=== PATIENT | male | born 1940 | race Hispanic/Latino ===

== ENCOUNTER 2022-07-24 09:38 | Inpatient (IN) | payer OTHER ==
--- OUTSIDE RECORDS SUMMARY | 2022-07-24 09:41 | XMS REPORT | Continuity of Care Document ---
:1940 Author Organization [facility] t Address [address] [place] [address] Care Team Providers Name Role Phone Glenn_Angeline Attending Clinician Unavailable Raju_P Attending Clinician Unavailable Glenn_Angeline Admitting Clinician Unavailable Philippeu_P Admitting Clinician Unavailable Payers Payer Name Policy Type Policy Number Effective Date Expiration Date S Banner [id number] (MEDICARE REPLACEMENT/ADVANTAGE - PPO) Problems This patient has no known problems. Allergies, Adverse Reactions, Alerts This patient has no known allergies or adverse reactions. Social History Smoking Status Start Date Stop Date Source Never Smoker [facility] Medications Ordered Filled Start Stop Current Ordering Indication Dosage Frequency Signature Comments Components Source Medication Medication Date Date Medication? Clinician (SIG) Name Name Augmentin Augmentin No 1 Q12H Augmentin [place] 875 mg-125 875 mg-125 875 mg-125 da mg tablet mg tablet mg tablet Medical Take 1 Take 1 Take 1 Group tablet tablet tablet every 12 every 12 every 12 hours by hours by hours by oral route oral route oral route for 10 for 10 for 10 days. take days. take days. take with food with food with food Flublok Flublok No Flublok [place] [facility] Quad Quad [facility] (PF) 180 (PF) 180 (PF) 180 Daniel up mcg (45 mcg mcg (45 mcg mcg (45 x 4)/0.5 mL x 4)/0.5 mL mcg x IM syringe IM syringe 4)/0.5 mL IM syringe glimepiride glimepiride No glimepirid [place] 4 mg tablet 4 mg tablet e 4 mg da tablet Medical [facility] lisinopril lisinopril No lisinopril [place] 20 mg 20 mg 20 mg da tablet tablet tablet Medical [facility] metformin metformin No metformin [place] 850 mg 850 mg 850 mg da tablet tablet tablet Medical [facility] orphenadrin orphenadrin No orphenadri [place] e citrate e citrate ne citrate da ER 100 mg ER 100 mg ER 100 mg Medical tablet,exte tablet,exte tablet,ext Group nded nded ended release release release Vital Signs Vital Name Observation Time Observation Value Comments Source BP Diastolic 2020-09-06 00:00:00 68 mm[Hg] [facility] Height 2020-09-06 00:00:00 69 [in_i] [facility] BMI (Body Mass 2020-09-06 00:00:00 28.9 kg/m2 [facility]) Group BP Systolic 2020-09-06 00:00:00 158 mm[Hg] [place] [facility] Body Weight 2020-09-06 00:00:00 3136 [oz_av] [facility] Procedures Procedure Date / Time Performed Performing Clinician [facility] e Cataract Surgery [facility] Encounters Start End Encounter Admission Attending Care Care Encounter Source Date/Time Date/Time Type Type Clinicians Facility Department ID 2020-09-06 2020-09-06 [place] [id number] [place] 10:35:00 10:35:00 [facility]22 [facility] 2020-09-06 2020-09-06 Outpatient Koudela_A [facility] [id number] [place] 10:35:00 10:35:00 [id number] [facility] 2020-09-06 2020-09-06 Lexie [facility] [place] - [id number] M [facility] 00:00:00 00:00:00 Discovery Glenn da PA-C: [facility] [address] [place] [address] , Ph. 2020-01-04 2020-01-04 [facility] [id number] [place] 02:22:00 02:22:00 [id number] [facility] 2019-12-21 2019-12-21 Outpatient Raju_P [facility] [id number] [place] 02:51:00 02:51:00 [id number] [facility] 2019-09-23 2019-09-23 Outpatient [facility] [id number] [place] 03:40:00 03:40:00 [id number] [facility] Results This patient has no known results.
[2022-07-24] MEDS ORDERED: VANCOMYCIN 1.75 GM in NA CHLORIDE 0.9% 500 ML IVPB ONE (10:00)
[2022-07-24] MEDS ORDERED: CEFEPIME 1 GM/VIAL ONE (10:06)
[2022-07-24] MEDS ORDERED: NA CHLORIDE 0.9% 100 ML ONE (10:06)
[2022-07-24 10:19] LABS: Absolute Lymphocytes (CBC) 1.8 K/uL (0.7-4.9); Hematocrit 37.9 % (39.6-49.0); MCV 90.9 fL (80-100); MPV 7.3 fL (7.6-11.3); RBC Red Blood Cell Count 4.17 M/uL (4.33-5.43)
[2022-07-24 10:31] LABS: C-Reactive Protein 30.3 mg/L (<3.00); Potassium 3.9 mEq/L (3.5-5.1)
--- NOTE | 2022-07-24 11:09 | RAD REPORT ---
EXAM DESCRIPTION: RAD - Foot Right 3 View - 07/24/2022 10:34 am CLINICAL HISTORY: 2nd toe infection COMPARISON: FOOT W OBLIQUES dated 08/25/2009 TECHNIQUE: Right foot, 3 views. FINDINGS: No fracture. Lytic changes involving the third digit distal and middle phalanges with disa rticulation at the interphalangeal joints. Surrounding soft tissue swelling, without evidence of soft tissue gas. Interval sequelae of second digit amputation at the level of the metatarsophalangeal art iculation. Hallux valgus deformity. IMPRESSION: Findings concerning for acute osteomyelitis involving the third digit as above.
--- NOTE | 2022-07-24 12:29 | EDPHYS ---
Physician Documentation [facility] Name: Reji Helton Age: 81 yrs Sex: Male : 1940 Arrival Date: 07/24/2022 Time: 09:38 Bed 28 Private MD: ED Physician Sushil Woodson HPI: 07/24 12:24 This 81 yrs old Male presents to ER via Ambulatory with complaints of Toe bs3 Infection. 12:24 Patient with a history of hypertension, diabetes presents with right foot pain he notes bs3 that he has not been well over approximately 1 week ago and then the nail came off and started to swell and get red and developed foul-smelling discharge over the last couple days he did not see anyone for it nothing makes it better or worse. Historical: - Allergies: :47 No Known Allergies; iw - PMHx: :47 Diabetes - NIDDM; Hypertension; iw ROS: 12:24 Constitutional: Negative for fever, chills bs3 12:24 All other systems are negative. Exam: 12:24 Constitutional: This is a well developed, well nourished patient who is awake, alert, bs3 and in no acute distress. Head/Face: Normocephalic, atraumatic. Eyes: Pupils equal round and reactive to light, extra-ocular motions intact. Lids and lashes normal. ENT: mmm, no posterior phyarngeal erythema Cardiovascular: Regular rate and rhythm with a normal S1 and S2. symmetric pulses in upper extremities Respiratory: Lungs have equal breath sounds bilaterally, clear to auscultation, no respiratory distress Abdomen/GI: Soft, non-tender, no rebound or guarding Skin: Warm, dry with normal turgor. Normal color with no rashes, no lesions, and no evidence of cellulitis. MS/ Extremity: right 3rd digit with erythema, fluctuance, foul smelling discharge. Neuro: Awake and alert, GCS 15, oriented to person, place, time, and situation. Cranial nerves II-XII grossly intact. Motor strength 5/5 in all extremities. Sensory grossly intact. Psych: Awake, alert, with orientation to person, place and time. Behavior, mood, and affect are within normal limits. Vital Signs: 09:47 BP 150 / 64; Pulse 70; Resp 16; Temp 98.2; Pulse Ox 100% on R/A; Weight 90.72 kg; iw Height 5 ft. 11 in. ; 11:38 BP 150 / 68; Pulse 62; Resp 16; Pulse Ox 100% ; ko1 09:47 Body Mass Index 27.89 (90.72 kg, 180.34 cm) iw MDM: 09:42 Patient medically screened. bs3 12:24 Data reviewed: vital signs, nurses notes. ED course: Patient with toe infection will bs3 cover with antibiotics Will evaluate for osteomyelitis will reassess Labs negative for acute pathology other than notable for an elevated CRP x-ray concerning for osteomyelitis given antibiotics will admit patient will need urgent debridement. 07/24 09:55 Order name: CBC with Diff; Complete Time: 10:34 bs3 07/24 09:55 Order name: BMP; Complete Time: 10:34 bs3 07/24 09:55 Order name: CRP; Complete Time: 10:34 bs3 07/24 09:55 Order name: Blood Culture Adult (2) bs3 07/24 13:56 Order name: Basic Metabolic Panel EDMS 07/24 13:56 Order name: Basic Metabolic Panel EDMS 07/24 13:56 Order name: CBC with Automated Diff EDMS 07/24 13:56 Order name: CBC with Automated Diff EDMS / 13:56 Order name: Magnesium EDMS / 13:56 Order name: Magnesium EDMS / 09:55 Order name: XRAY Foot RIGHT 3 View; Complete Time: 11:20 bs3 07/24 13:56 Order name: CONS Physician Consult EDMS 07/24 13:56 Order name: 60g Consistent Carbohydrate (ADA 1800/2000) EDMS 07/24 13:56 Order name: NPO EDMS Administered Medications: 10:12 Drug: Cefepime IVPB 1 grams Route: IVPB; Rate: 200 ml/hr; Infused Over: 30 mins; Site: kc6 right antecubital; 10:45 Follow up: Response: No adverse reaction; IV Status: Completed infusion; IV Intake: ko1 100ml 10:46 Follow up: Response: No adverse reaction; IV Status: Completed infusion; IV Intake: kc6 100ml 10:46 Drug: vancoMYCIN IVPB 20 mg/kg Route: IVPB; Site: right antecubital; kc6 12:24 Follow up: Response: No adverse reaction; IV Status: Completed infusion; IV Intake: ko1 500ml Disposition Summary: 07/24/22 12:29 Hospitalization Ordered Hospitalization Status: Inpatient Admission bs3 Provider: Reji Kiser bs3 Location: Telemetry/MedSurg (Inpatient) bs3 Condition: Stable bs3 Problem: new bs3 Symptoms: have improved bs3 Bed/Room Type: Standard bs3 Room Assignment: 407(07/24/22 14:51) [email or web address] Diagnosis - Osteomyelitis, unspecified bs3 Forms: - Medication Reconciliation Form bs3 - SBAR form bs3 Signatures: Dispatcher [employer] Mary Florentino RN RN iw Ramone Dale RN RN ja1 Caro Kohler RN RN jayson6 Sushil Woodson MD MD bs3 Reba Olivas RN ko1 Corrections: (The following items were deleted from the chart) 14:51 12:29 bs3 ja1
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
[2022-07-24] MEDS ORDERED: ACETAMINOPHEN 500 MG TAB PO PRN (13:51)
[2022-07-24] MEDS ORDERED: ONDANSETRON 4 MG/2 ML VIAL IV PRN (13:51)
[2022-07-24 14:31] VITALS: BMI 27.8
[2022-07-24] MEDS: INSULIN -REGULAR HUMAN 50 UNIT/0.5 ML ML SQ SCH ×2 (16:30→20:54)
[2022-07-24] MEDS ORDERED: HYDROCODONE/APAP 5/325 MG TAB PO PRN (17:16)
[2022-07-24] MEDS ORDERED: POTASSIUM CL SA 10 MEQ TAB PO ONE (20:00)
[2022-07-24] MEDS: CEFEPIME 2 GM in NA CHLORIDE 0.9% 100 ML IV SCH (20:44)
[2022-07-24] MEDS: NA CHLORIDE 0.9% 1,000 ML IV SCH (23:34)
[2022-07-25 04:57] LABS: Hematocrit 37.1 % (39.6-49.0); MCV 91.2 fL (80-100); MPV 7.8 fL (7.6-11.3); RBC Red Blood Cell Count 4.07 M/uL (4.33-5.43)
[2022-07-25 04:58] LABS: Absolute Lymphocytes (CBC) 1.6 K/uL (0.7-4.9); Lymphocytes % 18.4 % (15.3-44.8)
[2022-07-25 05:12] LABS: Magnesium 2.1 mg/dL (1.6-2.4); Potassium 3.9 mEq/L (3.5-5.1)
[2022-07-25] MEDS: VANCOMYCIN 1.5 GM in NA CHLORIDE 0.9% 500 ML IVPB SCH ×2 (05:34→22:52)
[2022-07-25] MEDS ORDERED: POTASSIUM CL SA 10 MEQ TAB PO ONE (06:16)
--- NOTE | 2022-07-25 07:11 | P.PN ---
Date of Service: 07/25/22 Subjective: feels about the same as yesterday slight improvement of swelling and redness of right foot otherwise no new / worsening symptoms waiting for surgery ROS: 10 point ROS as noted above, otherwise negative Physical Exam: GEN: Alert, oriented x3, NAD HEENT: Normal conjunctiva, sclera anicteric CV: Regular rate and rhythm, no edema Pulm: Nonlabored respirations on room air ABD: Soft, nontender, nondistended Integumentary: R 3rd toe with erythema, ulceration, foul smell, with swelling and erythema for fore foot. superficial abrasion of left 1st toe Neuro: Normal speech, normal affect vitals reviewed Problem List: Osteomyelitis R 3rd toe NIDDM2 Hypertension Xray Foot (07/24): concerning for acute osteomyelitis involving the third digit General Surgery consulted NPO for tentative Amputation of 3rd Toe of R foot 07/25 Blood culture: no growth so far; gram stain: gram positive cocci IV cefepime and vanc (07/24-) ID consulted pain medication as needed IVF when NPO confirm home meds accucheks / insulin as needed Code: full Dispo: home, ~3 days
[2022-07-25] MEDS: INSULIN -REGULAR HUMAN 50 UNIT/0.5 ML ML SQ SCH ×4 (07:30→20:16)
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
[2022-07-25] MEDS: CEFEPIME 2 GM in NA CHLORIDE 0.9% 100 ML IV SCH ×2 (09:29→20:14)
[2022-07-25] MEDS: NA CHLORIDE 0.9% 1,000 ML IV SCH ×2 (10:01→21:44)
[2022-07-25] MEDS ORDERED: NA CHLORIDE 0.9% 1,000 ML ONE (10:51)
[2022-07-25] MEDS ORDERED: BUPIVACAINE 0.25% PF 30 ML VIAL ONE (11:28)
[2022-07-25] MEDS ORDERED: propofoL 200 MG/20 ML VIAL IV ONE (11:42)
[2022-07-25] MEDS ORDERED: LIDOCAINE 2% MPF 5 ML VIAL ONE (11:42)
[2022-07-25] MEDS ORDERED: FENTANYL CITR 100 MCG/2 ML ONE (11:42)
[2022-07-25] MEDS ORDERED: ONDANSETRON 4 MG/2 ML VIAL ONE (11:43)
[2022-07-25] MEDS ORDERED: dexAMETHasone 10 MG/ML VIAL ONE (11:44)
--- NOTE | 2022-07-25 13:24 | P.OP ---
Preoperative diagnosis: Osteomyelitis of 3rd Toe of RIGHT foot Postoperative diagnosis: Osteomyelitis of 3rd Toe of RIGHT foot Primary procedure: Amputation of 3rd Toe of RIGHT foot Anesthesia: GETA + Local Estimated blood loss: <5cc Specimen: 3rd Toe of RIGHT foot Findings: Osteomyelitis of 3rd Toe of RIGHT foot Complications: None Transferred to: Recovery Room Condition: Good
[2022-07-25] MEDS: HYDROMORPHONE HCL 1 MG/ML INJ ONE ×2 (14:01→14:11)
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
--- NOTE | 2022-07-25 20:44 | OP ---
Date of Procedure: 07/25/2022 Surgeon: Jonathan Cooley MD, Preoperative Diagnosis: Osteomyelitis of the 3rd toe of the right foot. Postoperative Diagnosis: Osteomyelitis of the 3rd toe of the right foot. Procedure Performed: Amputation of 3rd toe of the right foot. Anesthesia: General endotracheal plus local with 0.25% Marcaine. Estimated Blood Loss: Less than 5 cc. Specimen: The 3rd toe of the right foot. Findings: Osteomyelitis of the 3rd toe of the right foot. Complications: None. The patient was transferred to recovery room in good condition. Procedure In Detail: After informed consent was obtained, the patient was brought to the operating r oom and prepped and draped in the usual sterile fashion. After adequate anesthesia was achieved, I m gabo a gilberto around the 3rd toe of the right foot based on a plantar flap. I then anesthetized the are a appropriately with 0.25% Marcaine, sharply incised circumferentially around following my plantar fl ap demarcated markings down through the tissue with a 15 blade down to subcutaneous tissues and using a combination of sharp dissection with Metzenbaum scissors and tenotomy scissors as well as electroc autery to dissect circumferentially around the metatarsophalangeal joint, ultimately ligating the met atarsophalangeal joint and sent it off for pathologic examination. At this point, I trimmed all nonv iable tissue and ultimately irrigated the area. No additional hemostatic measures were required. I then brought the plantar flap over the top and closed the defect using interrupted 2-0 nylon sutures with good approximation of tissues. The patient tolerated the procedure without any evidence of any complication and transferred to PACU in good condition. All counts were correct at the end of e case. TK/MODL Voice ID: [id number] Report ID: [id number]
[2022-07-26 05:17] LABS: Magnesium 2.2 mg/dL (1.6-2.4); Potassium 4.7 mEq/L (3.5-5.1)
[2022-07-26] MEDS: NA CHLORIDE 0.9% 1,000 ML IV SCH (06:01)
--- NOTE | 2022-07-26 07:13 | P.PN ---
Date of Service: 07/26/22 Subjective: feeling better today minimal pain in foot afebrile ROS: 10 point ROS as noted above, otherwise negative Physical Exam: GEN: Alert, oriented x3, NAD HEENT: Normal conjunctiva, sclera anicteric CV: Regular rate and rhythm, no edema Pulm: Nonlabored respirations on room air ABD: Soft, nontender, nondistended Integumentary: Amputation of 3rd Toe of R foot, dressing in place Neuro: Normal speech, normal affect vitals reviewed Problem List: Osteomyelitis R 3rd toe NIDDM2 Hypertension Xray Foot (07/24): concerning for acute osteomyelitis involving the third digit General Surgery consulted s/p Amputation of 3rd Toe of R foot 07/25 Blood culture: no growth so far; gram stain: gram positive cocci IV cefepime and vanc (07/24-) ID consulted pain medication as needed confirm home meds accucheks / insulin as needed Code: full Dispo: home, ~2 days pending culture results
[2022-07-26] MEDS: INSULIN -REGULAR HUMAN 50 UNIT/0.5 ML ML SQ SCH ×4 (07:30→20:31)
[2022-07-26] MEDS: lisinopriL 20 MG TAB PO SCH ×2 (08:28→20:32)
[2022-07-26] MEDS: CEFEPIME 2 GM in NA CHLORIDE 0.9% 100 ML IV SCH ×2 (08:28→20:30)
[2022-07-26] MEDS: VANCOMYCIN 1.5 GM in NA CHLORIDE 0.9% 500 ML IVPB SCH (16:36)
[2022-07-27 04:24] LABS: Magnesium 2.2 mg/dL (1.6-2.4); Potassium 4.4 mEq/L (3.5-5.1)
[2022-07-27] MEDS: INSULIN -REGULAR HUMAN 50 UNIT/0.5 ML ML SQ SCH ×4 (07:16→19:13)
[2022-07-27] MEDS: lisinopriL 20 MG TAB PO SCH ×2 (08:45→19:26)
[2022-07-27] MEDS: CEFEPIME 2 GM in NA CHLORIDE 0.9% 100 ML IV SCH ×2 (08:45→19:27)
--- NOTE | 2022-07-27 12:08 | P.PN ---
Date of Service: 07/27/22 Subjective: feeling better today swelling improved on foot no foot pain, +afebrile ROS: 10 point ROS as noted above, otherwise negative Physical Exam: GEN: Alert, oriented x3, NAD HEENT: Normal conjunctiva, sclera anicteric CV: Regular rate and rhythm, no edema; 2+DP pulse bilaterally Pulm: Nonlabored respirations on room air ABD: Soft, nontender, nondistended Integumentary: Amputation of 3rd Toe of R foot, no purulent drainage, surrounding erythema and swelling improved; pictures taken and in notes Neuro: Normal speech, normal affect vitals reviewed Problem List: Osteomyelitis R 3rd toe, now s/p amputation NIDDM2 Hypertension Xray Foot (07/24): concerning for acute osteomyelitis involving the third digit General Surgery consulted s/p Amputation of 3rd Toe of R foot 07/25 daily dressing changes photos taken 07/27 - in EMR Blood culture: no growth so far; gram stain: positive gram positive cocci check tomorrow if any growth IV vs oral abx on dc pending culture results IV cefepime and vanc (07/24-) ID consulted accjulia pressley sliding scale pain medication as needed Code: full Dispo: home, ~1 day pending culture results
[2022-07-27] MEDS: VANCOMYCIN 1.5 GM in NA CHLORIDE 0.9% 500 ML IVPB SCH (12:30)
[2022-07-28 00:52] VITALS: O2SAT 98
[2022-07-28] MEDS: VANCOMYCIN 1.5 GM in NA CHLORIDE 0.9% 500 ML IVPB SCH (05:38)
[2022-07-28 06:27] LABS: Hematocrit 37.9 % (39.6-49.0); Lymphocytes % 29.9 % (15.3-44.8); MCV 91.3 fL (80-100); MPV 7.7 fL (7.6-11.3); RBC Red Blood Cell Count 4.16 M/uL (4.33-5.43)
[2022-07-28 06:42] LABS: C-Reactive Protein 8.63 mg/L (<3.00); Magnesium 2.2 mg/dL (1.6-2.4); Potassium 4.1 mEq/L (3.5-5.1)
--- NOTE | 2022-07-28 07:10 | P.PN ---
Date of Service: 07/28/22 Subjective: ROS: 10 point ROS as noted above, otherwise negative Physical Exam: GEN: Alert, oriented x3, NAD HEENT: Normal conjunctiva, sclera anicteric CV: Regular rate and rhythm, no edema; 2+DP pulse bilaterally Pulm: Nonlabored respirations on room air ABD: Soft, nontender, nondistended Integumentary: Amputation of 3rd Toe of R foot, no purulent drainage, surrounding erythema and swelling improved; pictures taken and in notes Neuro: Normal speech, normal affect vitals reviewed Problem List: Osteomyelitis R 3rd toe, now s/p amputation NIDDM2 Hypertension Xray Foot (07/24): concerning for acute osteomyelitis involving the third digit General Surgery consulted s/p Amputation of 3rd Toe of R foot 07/25 daily dressing changes photos taken 07/27 - in EMR Blood culture: no growth so far; gram stain: positive gram positive cocci check tomorrow if any growth IV vs oral abx on dc pending culture results IV cefepime and vanc (07/24-) ID consulted accuchjulia hernandez sliding scale pain medication as needed Code: full Dispo: home, ~1 day pending culture results
[2022-07-28] MEDS: INSULIN -REGULAR HUMAN 50 UNIT/0.5 ML ML SQ SCH (07:30)
[2022-07-28 08:50] VITALS: BP 131/52; TEMP 98
[2022-07-28] MEDS: CEFEPIME 2 GM in NA CHLORIDE 0.9% 100 ML IV SCH (08:55)
[2022-07-28] MEDS: lisinopriL 20 MG TAB PO SCH (08:55)
--- NOTE | 2022-07-28 09:21 | P.PN ---
Date of Service: 07/28/22 Chief Complaint: osteomyelitis right foot Subjective: Improving. No new changes. No complaints at this time. Current plan to discharge home on oral antibiotics. Physical Examination Temp Pulse Resp BP Pulse Ox 98.0 F 52 16 131/52 L 100 07/28/22 08:00 07/28/22 08:00 07/28/22 08:00 07/28/22 08:00 07/28/22 08:00 General: Alert, In no apparent distress, Oriented x3 HEENT: Atraumatic, Normocephalic Neck: Supple, JVD not distended Respiratory: Clear to auscultation bilaterally, Normal air movement Cardiovascular: Normal pulses, Regular rate/rhythm Gastrointestinal: Normal bowel sounds, Soft and benign, Non-distended Integumentary: Tenderness/swelling, Erythema, Warmth Neurological: Normal speech, Normal tone, Normal affect Laboratory Data - Reviewed Imagings Data: - XR Right Foot 07/24: "No fracture. Lytic changes involving the third digit distal and middle phalanges with disarticulation at the interphalangeal joints. Surrounding soft tissue swelling, without evidence of soft tissue gas. Interval sequelae of second digit amputation at the level of the metatarsophalangeal articulation. Hallux valgus deformity." Microbiology Data - Blood cultures 07/24 and 07/26: No growth to date Medications List Reviewed: Yes Impression and Plan Problem List Diabetes Mellitus type II Hypertension Osteomyelitis Osteomyelitis of Right Foot - XR Right Foot 07/24: "Findings concerning for acute osteomyelitis involving the third digit" - Currently on Cefepime and Vancomycin (started 07/24) - Scheduled for amputation of third toe right foot today by Dr. Cooley - No leukocytosis. No fever. Blood cultures 07/24: No growth; gram stain w/ gram positive cocci. Repeat culture 07/26: no growth Recommendations - Continue wound care per surgery team. - d/c home with Bactrim DS x 7 days Case discussed with Quentin Meyer
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
== END 2022-07-28 11:00 | disposition home or self-care (01) | DRG 617 ==
LOC: ER 09:38 → ERHOLD 13:53 → 4TH 16:05
PROVIDERS: ADMIT Hospitalist; ATTEND Hospitalist
PROC: 0Y6T0Z0 Detachment at Right 3rd Toe, Complete, Open Approach (ICD-10-PCS; principal; 2022-07-25 11:30)
DX: E11.69 Type 2 diabetes mellitus with other specified complication (principal); E11.52 Type 2 diabetes mellitus with diabetic peripheral angiopathy with gangrene; M86.171 Other acute osteomyelitis, right ankle and foot; E11.621 Type 2 diabetes mellitus with foot ulcer; L97.519 Non-pressure chronic ulcer of other part of right foot with unspecified severity; I10 Essential (primary) hypertension; S90.415A Abrasion, left lesser toe(s), initial encounter; Z89.421 Acquired absence of other right toe(s); Z79.84 Long term (current) use of oral hypoglycemic drugs; Z79.899 Other long term (current) drug therapy
CPT/HCPCS: 36415; 80048; 80202; 82947; 83735; 85025; 86140; 87040; 87077; 87186; 87205; 88305; 88311; 94760; 96365; 96367; 99284; J0692; J1100; J1170; J1815; J2001; J2405; J2704; J3010; J7030; J7040